=== PATIENT | male | born 1965 | race Caucasian/White ===

== ENCOUNTER 2021-02-02 21:00 | Inpatient (IN) | payer OTHER, BC ==
[~2021-02-02 21:00] MED LIST: Iopamidol-370 76% 500 ML 1 ML ONE
[2021-02-02] MEDS ORDERED: HYDROmorphone 0.5 MG/0.5 ML SYRINGE ONE ×3 (21:04→22:49)
[2021-02-02 21:49] LABS: #Eosinphils 0.1 thou/uL (0.0-0.7); #Lymphocytes 1.6 thou/uL (1.20-3.40); #Monocytes 0.8 thou/uL (0.11-0.59); #Neutrophils 12.1 thou/uL (1.40-6.50); %Basophils 0.1 % (0.0-1.0); %Lymphocytes 10.6 % (21.0-51.0); %Monocytes 5.3 % (0.0-10.0); %Neutrophils 82.9 % (42.0-75.0); Mean Corpuscular HGB CONC 33.2 g/dL (32.0-36.0); Mean Corpuscular Hemoglobin 32.3 pg (27.0-31.0); Mean Corpuscular Volume 97.5 fL (78.0-98.0); Mean Platelet Volume 7.3 fL (7.4-10.4); Platelet Count 240 thou/uL (130-400); Red Blood Cell (RBC) Count 4.33 mill/uL (4.70-6.10); White Blood Cell (WBC) Count 14.6 thou/uL (4.8-10.8)
[2021-02-02] MEDS ORDERED: Ondansetron PF 4 MG/2 ML Vial ONE (22:09)
[2021-02-02] MEDS ORDERED: Promethazine HCl 25 MG/ML VIAL IM PRN ×2 (22:25)
[2021-02-02] MEDS ORDERED: Ondansetron ODT 4 MG TAB PO PRN (22:25)
[2021-02-02] MEDS ORDERED: Dextrose 50% Abboject 50 ML SYRINGE SLOW IVP PRN (22:25)
[2021-02-02] MEDS ORDERED: Ondansetron PF 4 MG/2 ML Vial IVP PRN (22:25)
[2021-02-02] MEDS ORDERED: hydrALAZINE 20 MG/ML VIAL SLOW IVP PRN (22:25)
[2021-02-02] MEDS ORDERED: Dextrose 5% in Water 1,000 ML IV PRN (22:25)
[2021-02-02] MEDS ORDERED: traMADol HCl 50 MG TAB PO PRN (22:30)
[2021-02-02] MEDS ORDERED: Cyclobenzaprine 10 MG TAB PO PRN (22:30)
[2021-02-02] MEDS ORDERED: Promethazine HCl 25 MG/ML VIAL ONE (22:42)
[2021-02-02 23:01] LABS: ALT (SGPT) 36 U/L (8-55); AST (SGOT) 30 U/L (5-34); Albumin 4.2 g/dL (3.5-5.0); Alkaline Phosphatase 132 U/L (40-110); Anion Gap 13 mmol/L (10-20); BUN (Urea Nitrogen) 10 mg/dL (8.4-25.7); Bilirubin, Total 0.5 mg/dL (0.2-1.2); Calc. Creatinine Clearance 0 mL/min (70-130); Calcium 8.9 mg/dL (7.8-10.44); Carbon Dioxide 19 mmol/L (22-29); Chloride 107 mmol/L (98-107); Globulin 2.7 g/dL (2.4-3.5); Glucose 112 mg/dL (70-105); Lipase 30 U/L (8-78); Protein, Total 6.9 g/dL (6.0-8.3); Sodium 135 mmol/L (136-145)
[2021-02-02 23:45] LABS: SARS-CoV-2 NAA Rapid Test Not Detected (NotDetected)
[2021-02-03 00:52] VITALS: BMI 29.7
[2021-02-03] MEDS: Sodium Chloride 0.9% 1,000 ML IV SCH ×2 (01:06→09:20)
[2021-02-03] MEDS: Morphine 4 MG/ML VIAL SLOW IVP PRN ×3 (01:06→10:52)
[2021-02-03] MEDS: Acetaminophen 500 MG TAB PO SCH ×4 (05:13→23:21)
[2021-02-03] MEDS: traMADol HCl 50 MG TAB PO SCH ×4 (05:14→23:20)
[2021-02-03] MEDS ORDERED: Ibuprofen 800 MG TAB PO SCH (06:00)
[2021-02-03 06:08] LABS: #Basophils 0.1 thou/uL (0.0-0.2); #Monocytes 0.6 thou/uL (0.11-0.59); #Neutrophils 4.4 thou/uL (1.40-6.50); %Basophils 0.8 % (0.0-1.0); %Eosinophils 0.7 % (0.0-10.0); %Lymphocytes 28.7 % (21.0-51.0); %Monocytes 8.3 % (0.0-10.0); %Neutrophils 61.5 % (42.0-75.0); Hemoglobin 13.5 g/dL (14.0-18.0); Mean Corpuscular Hemoglobin 32.6 pg (27.0-31.0); Mean Corpuscular Volume 98.8 fL (78.0-98.0); Mean Platelet Volume 7.3 fL (7.4-10.4); Platelet Count 226 thou/uL (130-400); RBC Distribution Width 12.1 % (11.5-14.5); Red Blood Cell (RBC) Count 4.15 mill/uL (4.70-6.10); White Blood Cell (WBC) Count 7.1 thou/uL (4.8-10.8)
[2021-02-03 06:30] LABS: Phosphorus 2.9 mg/dL (2.3-4.7)
[2021-02-03 06:31] LABS: Anion Gap 12 mmol/L (10-20); BUN (Urea Nitrogen) 8 mg/dL (8.4-25.7); Calc. Creatinine Clearance 131 mL/min (70-130); Calcium 8.8 mg/dL (7.8-10.44); Carbon Dioxide 25 mmol/L (22-29); Chloride 106 mmol/L (98-107); Glucose 107 mg/dL (70-105); Potassium 4.1 mmol/L (3.5-5.1); Sodium 139 mmol/L (136-145)
[2021-02-03 06:32] LABS: Magnesium 1.9 mg/dL (1.6-2.6)
[2021-02-03] MEDS ORDERED: Morphine 4 MG/ML VIAL SLOW IVP SCH (07:45)
[2021-02-03] MEDS: Famotidine 20 MG TAB PO SCH ×2 (07:48→21:29)
[2021-02-03] MEDS ORDERED: ceFAZolin Sodium/D5W 2 GM in Premix Bag 1 BAG IVPB SCH ×2 (08:15→20:00)
[2021-02-03] MEDS ORDERED: Ketorolac Tromethamine 30 MG/ML VIAL IVP SCH (09:15)
[2021-02-03] MEDS ORDERED: Fentanyl 100 MCG/2 ML VIAL ONE ×2 (11:19→12:02)
[2021-02-03] MEDS ORDERED: Midazolam HCl 2 mg/2 ml Vial ONE (11:19)
[2021-02-03] MEDS ORDERED: HYDROmorphone 2 MG/ML VIAL ONE (11:25)
[2021-02-03] MEDS ORDERED: ceFAZolin Sodium (SDC) 2 GM/100 ML BAG ONE (11:46)
[2021-02-03] MEDS ORDERED: Ketorolac Tromethamine 30 MG/ML VIAL ONE (12:02)
[2021-02-03] MEDS ORDERED: Dexamethasone 20 MG/5 ML VIAL ONE (12:02)
[2021-02-03] MEDS ORDERED: ePHEDrine 50 MG/ML VIAL ONE (12:02)
[2021-02-03] MEDS ORDERED: Ondansetron PF 4 MG/2 ML Vial ONE (12:02)
[2021-02-03] MEDS ORDERED: Bupivacaine PF 0.5% 30 ML VIAL ONE (12:02)
[2021-02-03] MEDS ORDERED: PROPOFOL 200 MG/20 ML VIAL ONE (12:02)
[2021-02-03] MEDS ORDERED: PHENYLEPHRINE-NS 100 MCG/ML 10 ML SYRINGE ONE (12:02)
[2021-02-03] MEDS ORDERED: Lidocaine 1% PF 5 ML VIAL ONE (12:02)
[2021-02-03] MEDS ORDERED: Ondansetron HCl/PF 4 MG/2 ML Vial IVP PRN (12:44)
[2021-02-03] MEDS ORDERED: Promethazine HCl 25 MG/ML VIAL IM PRN (12:44)
[2021-02-03] MEDS ORDERED: HYDROmorphone 2 MG/ML VIAL SLOW IVP PRN (12:44)
[2021-02-03] MEDS ORDERED: Promethazine HCl 25 MG/ML VIAL IVPB PRN (12:44)
[2021-02-03] MEDS: Ketorolac Tromethamine 30 MG/ML VIAL IVP SCH ×2 (16:35→23:18)
[2021-02-03] MEDS ORDERED: CEFAZOLIN 2 GM in Sodium Chloride 0.9% 100 ML IVPB SCH (21:15)
[2021-02-03] MEDS: CEFAZOLIN 2 GM, Admixture Fee 1 EACH in Sodium Chloride 0.9% 100 ML IVPB SCH (21:24)
[2021-02-04] MEDS: CEFAZOLIN 2 GM, Admixture Fee 1 EACH in Sodium Chloride 0.9% 100 ML IVPB SCH (05:17)
[2021-02-04] MEDS: Ketorolac Tromethamine 30 MG/ML VIAL IVP SCH ×3 (05:21→17:23)
[2021-02-04] MEDS: traMADol HCl 50 MG TAB PO SCH ×3 (05:22→17:24)
[2021-02-04] MEDS: Acetaminophen 500 MG TAB PO SCH (05:24)
[2021-02-04] MEDS: HYDROcodone/Acetaminophen 5/325 mg Tablet PO PRN ×3 (09:12→20:28)
[2021-02-04] MEDS: Famotidine 20 MG TAB PO SCH ×2 (09:12→20:29)
[2021-02-04] MEDS: Acetaminophen 325 MG TAB PO SCH ×2 (11:52→17:26)
[2021-02-04] MEDS: Gabapentin 100 MG CAP PO SCH ×2 (15:47→20:30)
[2021-02-04] MEDS: Senokot S 8.6-50 MG TAB PO SCH (20:28)
[2021-02-04] MEDS ORDERED: Enoxaparin Sodium 40 MG/0.4 ML SYRINGE SC SCH (21:00)
[2021-02-05] MEDS: Ketorolac Tromethamine 30 MG/ML VIAL IVP SCH ×2 (00:01→05:45)
[2021-02-05] MEDS: traMADol HCl 50 MG TAB PO SCH ×3 (00:02→11:27)
[2021-02-05] MEDS: Acetaminophen 325 MG TAB PO SCH ×3 (00:03→11:28)
[2021-02-05] MEDS: Famotidine 20 MG TAB PO SCH (08:49)
[2021-02-05] MEDS: Gabapentin 100 MG CAP PO SCH (08:49)
[2021-02-05] MEDS: Senokot S 8.6-50 MG TAB PO SCH (08:50)
[2021-02-05] MEDS: HYDROcodone/Acetaminophen 5/325 mg Tablet PO PRN (08:52)
[2021-02-05] MEDS ORDERED: Polyethylene Glycol 3350 17 GM Packet PO SCH (09:00)
[2021-02-05] MEDS ORDERED: Rosuvastatin 20 MG TAB PO SCH (09:00)
[2021-02-05] MEDS ORDERED: Ibuprofen 200 MG TAB PO PRN (09:03)
[2021-02-05 11:49] VITALS: BP 117/71; TEMP 97.6
== END 2021-02-05 14:07 | disposition home or self-care (01) | DRG 494 ==
LOC: ERS 21:00 → SURG B 22:32
PROVIDERS: ADMIT Surgery; ATTEND Surgery
PROC: 0QSH36Z Reposition Left Tibia with Intramedullary Internal Fixation Device, Percutaneous Approach (ICD-10-PCS; principal; 2021-02-03)
PROC: 3E0T3BZ Introduction of Anesthetic Agent into Peripheral Nerves and Plexi, Percutaneous Approach (ICD-10-PCS; 2021-02-03)
PROC: 0QSRXZZ Reposition Left Toe Phalanx, External Approach (ICD-10-PCS; 2021-02-03)
PROC: 0QSKXZZ Reposition Left Fibula, External Approach (ICD-10-PCS; 2021-02-03)
DX: S82.392A Other fracture of lower end of left tibia, initial encounter for closed fracture (principal); E78.5 Hyperlipidemia, unspecified; Z20.822 Contact with and (suspected) exposure to COVID-19; S82.492A Other fracture of shaft of left fibula, initial encounter for closed fracture; S92.422A Displaced fracture of distal phalanx of left great toe, initial encounter for closed fracture; Z79.899 Other long term (current) drug therapy; V80.010A Animal-rider injured by fall from or being thrown from horse in noncollision accident, initial encounter
CPT/HCPCS: 36415; 71260; 74177; 76000; 80048; 80053; 82550; 83690; 83735; 84100; 85025; 93005; C1713; G0390; J0690; J1100; J1170; J1650; J1885; J2250; J2270; J2405; J2550; J2704; J3010; J3490; J7050; Q9967; S0020; U0002